=== PATIENT | female | born 2000 | race Caucasian/White ===

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

== ENCOUNTER 2021-01-01 13:48 | Emergency (ER) | payer OTHER ==
[~2021-01-01 13:48] MED LIST changes: +KEPPRA500 MG PO
== END 2021-01-01 15:24 | disposition left against medical advice (07) ==
LOC: ER1 13:48
DX: Z53.21 Procedure and treatment not carried out due to patient leaving prior to being seen by health care provider (principal)

== ENCOUNTER 2021-01-16 00:31 | Emergency (ER) | payer OTHER ==
[2021-01-16 02:52] LABS: RED BLOOD COUNT 4.73 M/UL (4.00-5.10); WHITE BLOOD COUNT 9.1 K/UL (4.5-11.0)
[2021-01-16 03:09] LABS: BUN/CREATININE RATIO 18 (0-10)
[2021-01-16] MEDS ORDERED: MACROBID 100 M100 M1 PO (04:21)
== END 2021-01-16 04:25 | disposition home or self-care (01) ==
LOC: ER1 00:31
PROVIDERS: Family Medicine
DX: G25.9 Extrapyramidal and movement disorder, unspecified (principal); F17.200 Nicotine dependence, unspecified, uncomplicated
CPT/HCPCS: 80053; 81001; 85025; 99284

== ENCOUNTER 2021-04-13 08:57 | Emergency (ER) | payer OTHER ==
[~2021-04-13 08:57] MED LIST changes: +MACROBID 100 M100 M1 PO
== END 2021-04-13 13:45 | disposition left against medical advice (07) ==
LOC: ER1 08:57
DX: Z20.822 Contact with and (suspected) exposure to COVID-19 (principal); E11.9 Type 2 diabetes mellitus without complications
CPT/HCPCS: 99283; U0002